=== PATIENT | female | born 1965 | race Caucasian/White ===

== ENCOUNTER 2025-01-23 17:33 | Emergency (ER) | payer OTHER, SELFPAY ==
--- NOTE | 2025-01-23 17:46 | EKG_ITS ---
[facility] Test Date: 2025-01-23 Pat Name: MICHELLE FOREMAN Department: Room: - Gender: Female [employer]: : 1965 Requested By: Luisa Araiza Order Number: [id number] Reading MD: Luisa Araiza Measurements Intervals [place] Rate: 81 P: 40 TN: 119 QRS: -47 QRSD: 106 T: -10 QT: 365 QTc: 425 Interpretive Statements SINUS RHYTHM WITH SHORT TN INTERVAL LOW QRS VOLTAGE IN PRECORDIAL LEADS [QRS DEFLECTION < 1.0 mV IN CHEST LEADS] LEFT ANTERIOR FASCICULAR BLOCK [QRS AXIS <= -45, QR IN I, RS IN II] POSSIBLE ANTERIOR MYOCARDIAL INFARCTION , OF INDETERMINATE AGE [30 ms Q WAVE IN V3/V4, OR R < 0.2 mV IN V4] No previous ECG available for comparison /[id number]/[email or web address]/[id number].pdf
[2025-01-23 17:54] VITALS: BP 136/87; PULSE 78; RESP 19; TEMP 36.6; O2SAT 96
--- NOTE | 2025-01-23 18:12 | XR_ITS ---
Examination: CT abdomen with intravenous contrast CT pelvis with intravenous contrast 2-D coronal reconstructions 2-D sagittal reconstructions Date and time of exam: January 23, 2025, 2037 hours INDICATIONS: Generalized abdominal pain and nausea beginning 1 week ago. CTDI: vol (mGy) 17.3 DLP: (mGycm) 911 Technique: Multiple axial sections of the abdomen and pelvis have been obtained. 64 slice high-resolution scanner used. 3 mm axial sections have been obtained, post intravenous injection 60 cc [id number] 2-D sagittal, coronal reconstructions obtained. Low dose protocols were performed. One or more of the following dose reduction techniques were used; automated exposure control, adjustment of the mA and/or KV according to patient size, use of iterative reconstruction technique. Findings: No focal liver or splenic lesions Edema involving the gastric antrum, axial image 71 No gallstones No pancreatic mass No common hepatic or common bile duct stones No renal or ureteral calculi 10 mm fat-containing umbilical hernia Normal appendix Scattered colonic diverticulosis No diverticulitis No pelvic mass Bladder intact Mild to moderate diffuse lumbar degenerative disc disease IMPRESSION: Gastritis pattern Negative for gallstones No renal or ureteral calculi, no hydronephrosis Normal appendix No bowel obstruction diverticulitis or free air
--- NOTE | 2025-01-23 18:13 | PD.EDRME ---
Rapid Medical Screening Exam RME Arrival date/time: 01/23/25 17:33 59-year-old female reports with complaints of epigastric abdominal pain that radiates to chest and back for several hours Chief Complaint: Chest Pain Time Seen by Provider: 01/23/25 18:10 Vital signs: Vital Signs Temperature 97.9 F 01/23/25 17:54 Pulse Rate 78 01/23/25 17:54 Respiratory Rate 19 01/23/25 17:54 Blood Pressure 136/87 H 01/23/25 17:54 Pulse Oximetry (%) 96 01/23/25 17:54 Oxygen Delivery Method Room Air 01/23/25 17:54 Exam: - Clinical Impression: -
[2025-01-23 18:37] LABS: Basophils # (Auto) 0.0 Thou/mm3 (0.0-0.2); Basophils % (Auto) 0 % (0-2.5); Eosinophils # (Auto) 0.1 Thou/mm3 (0.0-0.5); Eosinophils % (Auto) 1 % (0-10); Hematocrit 44.5 % (36.0-46.0); Hemoglobin 14.3 g/dL (12.0-16.0); Immature Granulocytes Auto 0.02 Thou/mm3 (0.00-0.00); Lymphocytes # (Auto) 2.4 Thou/mm3 (1.0-4.8); Lymphocytes % (Auto) 25 % (10-50); Mean Corpuscular HGB Conc 32.1 g/dl (31.0-37.0); Mean Corpuscular Hemoglobin 32.9 pg (25.0-35.0); Mean Corpuscular Volume 103 fL (80-100); Monocytes # (Auto) 0.7 Thou/mm3 (0.0-0.8); Monocytes % (Auto) 7 % (0-12); Neutrophils # (Auto) 6.5 Thou/mm3 (1.8-7.7); Neutrophils % (Auto) 67 % (37-80); Nucleated Red Blood Cell # 0.00 Thou/mm3 (0.00-0.00); Nucleated Red Blood Cell % 0 /100 WBC (0); Platelet Count 254 Thou/mm3 (140-440); RDW Standard Deviation 52.8 fL (36.4-46.3); Red Blood Count 4.34 Miln/mm3 (4.00-5.20); White Blood Count 9.8 Thou/mm3 (3.6-11.0)
[2025-01-23 19:00] LABS: Alanine Aminotransferase 518 U/L (10-49); Albumin, Serum 5.0 gm/dL (3.5-5.0); Albumin/Globulin Ratio 1.9 (1.2-2.2); Alkaline Phosphatase 371 U/L (46-116); Anion Gap 10 (7-16); Aspartate Amino Transferase 484 U/L (0-34); BUN/Creatinine Ratio 11 Ratio (12-20); Bilirubin,Total 1.8 mg/dL (0.3-1.2); Blood Urea Nitrogen 11 mg/dL (9-23); Calcium 10.2 mg/dL (8.3-10.6); Calcium (Corrected) 10.2 mg/dL (8.5-10.1); Carbon Dioxide 30.9 mMol/L (20.0-31.0); Chloride 104 mMol/L (98-107); Creatinine (Component) 1.0 mg/dL (0.6-1.3); Globulin 2.6 gm/dL (2.3-3.5); Glucose 104 mg/dL (74-106); Lipase 2096 U/L (12-53); Osmolality,Calculated 288 (275-295); Potassium 4.0 mMol/L (3.4-5.1); Sodium 145 mMol/L (136-145); Total Protein 7.6 gm/dL (5.7-8.2); Troponin I < 0.002 ng/mL (0.0-0.045); eGFR > 60 See Note
--- NOTE | 2025-01-23 19:03 | XR_ITS ---
Examination: Abdomen sonogram, Limited Date and time of exam: January 23, 2025, 2106 hours INDICATION: Epigastric pain beginning 1 week ago worse today, gastritis pattern on CT abdomen pelvis study today Technique: Real-time klein scale transabdominal sonographic images of the upper abdomen obtained. Findings: Multiple gallstones Gallbladder wall 0.38 cm no edema Common bile duct 0.6 cm no stones Pancreatic head 2.6 cm Liver 15.1 cm fatty infiltration no focal liver lesions Normal hepatopetal portal venous flow Patent IVC IMPRESSION: Cholelithiasis Borderline thickening gallbladder wall, consider HIDA scan or MRCP follow-up to exclude cholecystitis and assess the mildly prominent common bile duct
--- NOTE | 2025-01-23 21:59 | PD.EDADULT ---
ED General RME/HPI General Chief complaint: Chest Pain Stated complaint: CHEST PAIN X 5 DAYS, ABNORMAL EKG FROM PCP Time Seen by Provider: 01/23/25 18:10 Arrival date/time: 01/23/25 17:33 RME / HPI RME / HPI narrative: 01/23/25 17:33 59-year-old female reports with complaints of epigastric abdominal pain that radiates to chest and back for several hours Exam: - Impression: - Related Data Home Medications ?Medication ?Instructions ?Recorded ?Confirmed ibuprofen 600 mg tablet 600 mg PO DAILY PRN Pain 07/31/20 07/31/20 Allergies Allergy/AdvReac Type Severity Reaction Status Date / Time No Known Allergies Allergy Verified 01/23/25 17:35 ED Exam Narrative Physical exam: Physical Exam: GENERAL: Awake, answering questions appropriately, appears stated age, obese HEENT: NC/AT. Moist mucosa. PERRLA/EOMI. CARDIO: Heart RRR, no obvious murmurs, no JVD. PULM: No coughing or visible SOB. Lungs CTA B/L. GI: Abdomen soft, tenderness to palpation epigastric region, moderate intensity, rest of abdominal exam largely negative, no rigidity or rebound tenderness, borborygmi apparent SKIN/MSK/EXT: No wounds/discoloration/rashes/edema/amputations noted. +Pedal pulses present B/L. NEURO: Oriented x3, Moves extremities x4, no focal neurologic deficits noted. Course Quality Measures none Orders Category Date Time Status CT Screening NOW Care 01/23/25 18:13 Active EKG (ED ONLY) *Do not use* NOW Care 01/23/25 17:46 Completed Insert IV NOW Care 01/23/25 21:46 Active MRI Screening NOW Care 01/23/25 22:27 Active NPO NOW Care 01/23/25 22:53 Active Diet NPO (NOW) Diet 01/23/25 22:[address] abdomen pelvis w con Stat Exams 01/23/25 18:12 Completed EKG (ED Only) Stat Exams 01/23/25 17:46 Draft MR MRCP Stat Exams 01/24/25 08:00 Ordered US gall bladder Stat Exams 01/23/25 19:03 Completed CBC Stat Lab 01/23/25 18:22 Completed CMP [Comprehensive Metabolic Panel] Stat Lab 01/23/25 18:22 Completed Lipase Stat Lab 01/23/25 18:22 Completed Lipid Panel Stat Lab 01/23/25 18:22 Completed Troponin I Stat Lab 01/23/25 18:22 Completed UA, C/S IF [Urinalysis, C/S if Indicated] Stat Lab 01/23/25 18:13 Ordered Ringers Lactated 1000 ml [Lactated Ringers] 1,000 ml Med 01/23/25 21:46 Discontinued IV 200 mls/hr Ringers Lactated 1000 ml [Lactated Ringers] 1,000 ml Med 01/23/25 22:27 Active IV 200 mls/hr Vital Signs Vital signs: Vital Signs Temperature 97.9 F 01/23/25 17:54 Pulse Rate 78 01/23/25 17:54 Respiratory Rate 19 01/23/25 17:54 Blood Pressure 136/87 H 01/23/25 17:54 Pulse Oximetry (%) 96 01/23/25 17:54 Oxygen Delivery Method Room Air 01/23/25 17:54 Discharge Plan Plan Patient Disposition: Admit Acute Care w/in Hospital Prescriptions/Referrals Prescriptions/Med Rec: No Action ibuprofen 600 mg Tablet 600 mg PO DAILY PRN (Reason: Pain) Referrals: Sabrina Mcpherson FNP-C [Primary Care Provider] - In 1 week Problem List Clinical Impression: Acute gallstone pancreatitis Patient/Caregiver Discharge Instructions Print Language: [place]orese Stand Alone Forms: Gina Award Info., Patient Portal Info Letter MD Attestation Attestation I, Dr. Chin, was present for the pertinent history physical exam, medical decision making, treatment, and reevaluation for this patient Emergency Department. The patient otherwise is afebrile with a white count of 9.8 and platelets of 254. Electrolytes show an ALT of 518, AST of 44 and a total bili of 1.8. Troponin is negative at 0.002. Patient does have elevated lipase at 2000. Only mildly elevated HDL and triglycerides are normal. The resident did discuss this with the medicine team and at this time they want an MRCP prior to admission. Patient is hemodynamically stable and otherwise has no cholangitis. Patient always for this patient that was seen the emergency department. I was involved in the history and physical exam, MDM Narrative MDM hospital course (for use when minimal MDM required): HPI: 59-year-old female with with no significant past medical history, 1 and hernia repair in the past presenting to the ED on 01/23 with abdominal pain. Patient states the abdominal pain started yesterday evening and she started developing some nausea. She states the pain was sharp in nature and radiated to her back; however, the pain is improved currently but during the episode she felt very diaphoretic. Apparently patient was seen by her PCP this morning who ordered an EKG and told her to come to the ED. Patient denies having any chest pain, shortness of breath, palpitations, dizziness, vomiting, diarrhea, melena, hematochezia. Please see physical exam above, during assessment patient is mildly hypertensive 136/87, heart rate 78, respiratory rate of 19, afebrile satting 96 on room air. Laboratory findings include no leukocytosis, MCV of 103, CMP is largely unremarkable, mildly elevated corrected calcium of 10.2, T. bili of 1.8, AST of 484, ALT of 580, alk phos of 371, lipase of 2096.Preoperative CT abdomen pelvis shows gastritis pattern with a 10 mm fat-containing umbilical hernia, but otherwise is unremarkable, gallbladder ultrasound shows cholelithiasis and mildly prominent common bile duct measuring 0.6 cm but no stones visualized. Differentials include: Gallstone pancreatitis, idiopathic pancreatitis, gastritis, peptic ulcer disease #Gallstone pancreatitis #Choledocholithiasis #Cholelithiasis As noted above, patient's presenting with typical pancreatic pain Meets diagnostic criteria for pancreatitis including severely elevated lipase and pathognomonic pain; however, CT is largely negative Called admitting hospitalist team who agreed to assess the patient and requested MRCP prior to admission since patient's T. bili is elevated patient could have a retained stone in common bile duct Plan: Ordered MRCP which will be completed prior to admission call Will start aggressive IV fluid rehydration for pancreatitis including LR at 200 cc/hour for 2 bags and reassess Pain management Keep patient n.p.o. Patient seen and assessed with attending Dr. Eugenie Gibson, DO PGY-2 Internal Medicine - GME Medication Administration(s) Medication Administration History Lactated Ringer's (Lactated Ringers) 1,000 mls @ 200 mls/hr IV .Q5H BERTHA Stop: 01/24/25 08:26 Last Admin: 01/23/25 22:53 Dose: 200 mls/hr Documented By: JENELLE Discontinued Medications Lactated Ringer's (Lactated Ringers) 1,000 mls @ 200 mls/hr IV .Q5H ONE Stop: 01/24/25 02:45 Last Admin: 01/23/25 22:38 Dose: Not Given Documented By: JENELLE Non-Admin Reason: Cancelled by Provider
[2025-01-23] MEDS: RINGERS LACTATED 1000 ML 1,000 ML 200 ML IV (22:53)
[2025-01-23 23:05] LABS: Cardiac Risk Estimate 3.0 RATIO (3.7-5.6); Cholesterol 204 mg/dL (132-200); HDL Cholesterol 67 mg/dL (40-60); LDL Cholesterol,Calculated 109 mg/dL (0-130); Triglycerides 138 mg/dL (30-150)
[2025-01-23 23:25] VITALS: BP 136/90; PULSE 70; RESP 18; TEMP 36.8; O2SAT 94; BMI 36.1
[2025-01-23 23:43] VITALS: BP 130/83; PULSE 73; RESP 19; TEMP 36.8; O2SAT 96
[2025-01-24] VITALS (7 sets, daily range): BP systolic 107–149; BP diastolic 61–102; PULSE 65–78; RESP 15–18; TEMP 36.6–36.8; O2SAT 95–100
[2025-01-24 02:43] LABS: Collection Type, Urine Clean Catch
[2025-01-24 02:55] LABS: Bilirubin,Urine Negative (Negative); Blood,Urine Negative (Negative); Clarity,Urine Clear (Clear/Hazy); Color,Urine Lt-Yellow (Lt Yel-Yel); Culture Indicated,Urine Not Indicated; Glucose, Urine Negative (Negative); Ketones,Urine 1+ (Negative); Leukocyte Esterase,Urine Negative (Negative); Nitrite,Urine Negative (Negative); PH,Urine 6.5 (5.0-7.0); Protein,Urine Negative (Neg - Trace); RBC,Urine 2 /hpf (0-3); Specific Gravity,Urine 1.037 (1.001-1.035); Squamous Epithelial Cell,Urine 4 /hpf (0-5); Urobilinogen,Urine Negative mg/dL (0.0-1.0); WBC,Urine 2 /hpf (0-5)
[2025-01-24] MEDS: MORPHINE SULF INJ 4 MG/ML VIAL IVP ×2 (05:08→12:18)
[2025-01-24] MEDS: ONDANSETRON INJ 2 MG/ML INJ 2 ML 4 MG IVP ×2 (05:08→12:17)
[2025-01-24] MEDS: RINGERS LACTATED 1000 ML 1,000 ML 200 ML IV (05:21)
[2025-01-24] MEDS: PIPER/TAZO 3.375 GM PREMIX 3.375 GM/50 ML BAG IV (06:52)
[2025-01-24 07:06] LABS: Lactate (Lactic Acid) 0.5 mMol/L (0.4-2.0)
[2025-01-24 07:47] LABS: Alanine Aminotransferase 393 U/L (10-49); Albumin, Serum 4.6 gm/dL (3.5-5.0); Albumin/Globulin Ratio 1.9 (1.2-2.2); Alkaline Phosphatase 333 U/L (46-116); Anion Gap 10 (7-16); Aspartate Amino Transferase 222 U/L (0-34); BUN/Creatinine Ratio 14 Ratio (12-20); Bilirubin,Total 0.9 mg/dL (0.3-1.2); Blood Urea Nitrogen 11 mg/dL (9-23); Calcium 9.3 mg/dL (8.3-10.6); Calcium (Corrected) 9.3 mg/dL (8.5-10.1); Carbon Dioxide 25.8 mMol/L (20.0-31.0); Chloride 108 mMol/L (98-107); Creatinine (Component) 0.8 mg/dL (0.6-1.3); Estimated Creatinine Clearance 73.7 mL/min (>60); Globulin 2.4 gm/dL (2.3-3.5); Glucose 113 mg/dL (74-106); Lipase 114 U/L (12-53); Osmolality,Calculated 287 (275-295); Potassium 3.9 mMol/L (3.4-5.1); Sodium 144 mMol/L (136-145); Total Protein 7.0 gm/dL (5.7-8.2); eGFR > 60 See Note
--- NOTE | 2025-01-24 08:00 | XR_ITS ---
MRI abdomen, without contrast. MRCP Date and time of exam: January 24, 2025, 0905 hours INDICATIONS: Elevated total bilirubin on laboratory examination today Technique: Multiple axial and coronal images of the abdomen have been obtained with the Siemens 1.5T MRI scanner. Images obtained included T1 weighted transverse images, T2-weighted transverse images, T2-weighted transverse images fat-suppressed, T2 weighted haste fat suppressed transverse images, T1 weighted images, in and out of phase images, T2-weighted coronal images, breath hold, T2 weighted haze coronal images as well as T2 weighted coronal thick slab images, MRCP. Findings: Mild intrahepatic biliary tract dilatation Multiple gallstones Abnormal enlargement common bile duct 10 mm Small filling defects in the common bile duct 2 mm, 3 mm and abrupt termination of the distal common bile duct, meniscus defect Spleen not enlarged No hydronephrosis No ascites IMPRESSION: Cholelithiasis, negative for cholecystitis Extrahepatic biliary tract dilatation, small stones in the common bile duct and findings suspicious for impacted 7 mm stone in the distal common bile duct, recommend ERCP follow-up
--- NOTE | 2025-01-24 10:25 | PD.EDADDENDU ---
Emergency Room Addendum Addendum Narrative: 0600: Care assumed from Dr. Gibson PGY2 and Dr. Traore, the previous shift emergency physician. Past medical, surgical, social and family history reviewed. Vitals and home medications reviewed. I will assume the care of the patient at this time, pending MRCP and final disposition. Please refer to the emergency department record for history and examination from initial visit.?The following addendum documentation note is intended to reflect any pending information, findings, or radiology results not included in the patient?s initial chart. MRCP shows extrahepatic biliary tract dilatation, small stones in the common bile duct and findings suspicious for impacted 7 mm stone in the distal common bile duct . Plan to transfer the patient for ERCP. 1105a: I spoke with transfer nurse at [facility]. Discussed patients PMHx, HPI, ED course, exam findings, labs, and radiology results. States she presented the case to their GI Dr. Worthy who has accepted the patient for transfer, ED to ED.
--- NOTE | 2025-01-24 10:38 | PC.CC ---
Addendum entered by Ishaan Orozco RN 01/24/25 11:10: 1103: Received call back from Mckayla joyce/ [facility], she spoke to the Dr. Pantoja. Dr. WINSTON accepted pt ED TO ED. call report to [phone]. Transfer packet and CD X1 created. Original Note: received transfer request from Dr. Pantoja for GI for ERCP for impacted 7 mm stone in the distal CBD. Clinicals sent to [facility] and [facility]. Called [facility] spoke to Jeffery to initiate transfer request. Called [facility], spoke to Mckayla. She will review clinicals when she receives them and call back.
--- NOTE | 2025-01-24 13:31 | PC.NURSE ---
report called via telephone to juani anguiano from [facility]
== END 2025-01-24 13:33 | disposition short-term general hospital (02) ==
PROVIDERS: Physician Assistant; Emergency Provider Family Medicine; PCP Nurse Practitioner Family
DX: K85.10 Biliary acute pancreatitis without necrosis or infection (principal); K80.70 Calculus of gallbladder and bile duct without cholecystitis without obstruction; I44.4 Left anterior fascicular block; Z75.1 Person awaiting admission to adequate facility elsewhere
CPT/HCPCS: 36415; 74177; 74181; 76705; 80053; 80061; 81001; 83605; 83690; 84484; 85025; 87040; 93005; 96365; 96375; 96376; 99284; A4649; J2270; J2405; J2543; J7120; Q9967